=== PATIENT | male | born 1985 | race African-American/Black ===

== ENCOUNTER 2018-06-02 17:49 | Emergency (ER) | payer MEDICAID, OTHER ==
[~2018-06-02] VITALS: Ht 180.3 cm; Wt 86.2 kg
[2018-06-02 18:31] VITALS: BP 126/87
== END 2018-06-02 18:32 | disposition left against medical advice (07) ==
LOC: ER 17:49
DX: R51 Headache (principal); Z53.21 Procedure and treatment not carried out due to patient leaving prior to being seen by health care provider

== ENCOUNTER 2018-06-15 22:52 | Emergency (ER) | payer MEDICAID, OTHER | END 2018-06-15 23:33 | disposition left against medical advice (07) | LOC: ER 23:08 | DX: R07.9 Chest pain, unspecified (principal); Z53.21 Procedure and treatment not carried out due to patient leaving prior to being seen by health care provider | CPT/HCPCS: 93005 ==

== ENCOUNTER 2018-06-19 05:53 | Emergency (ER) | payer MEDICAID ==
[~2018-06-19] VITALS: Ht 180.3 cm; Wt 81.6 kg
[2018-06-19 06:02] VITALS: BP 129/89
== END 2018-06-19 06:46 | disposition left against medical advice (07) ==
LOC: ER 05:54
DX: M79.602 Pain in left arm (principal); M79.601 Pain in right arm; Z53.21 Procedure and treatment not carried out due to patient leaving prior to being seen by health care provider

== ENCOUNTER 2018-06-24 22:49 | Emergency (ER) | payer MEDICAID, OTHER ==
[~2018-06-24] VITALS: Ht 180.3 cm; Wt 86.2 kg
[2018-06-24] MEDS ORDERED: LORazepam 0.5 MG TAB PO ONE (23:30)
[2018-06-24 23:53] LABS: Basophils # (auto) 0.1 uL; Basophils % (auto) 0.9 % (0.0-2.0); Eosinophils # (auto) 0.1 uL; Eosinophils % (auto) 1.1 % (0.0-7.0); Hematocrit 50.6 % (41.0-53.0); Hemoglobin 17.2 g/dL (13.5-17.5); Lymphocytes % (auto) 23.3 % (10.0-50.0); Mean Corpuscular Hemoglobin 30.6 pg (28.0-32.0); Mean Corpuscular Hgb Conc. 33.9 g/dL (32.0-36.0); Mean Corpuscular Volume 90.1 fL (80.0-100.0); Monocytes # (auto) 0.7 uL; Monocytes % (auto) 8.4 % (0.0-12.0); Neutrophils # (auto) 5.8 uL; Neutrophils % (auto) 66.3 % (37.0-80.0); Nucleated Red Blood Cells % 0.2 %; Platelet Count (auto) 147 10^3/uL (140-450); Red Blood Cells 5.62 10^6/uL (4.5-5.90); Red Cell Distribution Width 13.2 % (11.8-14.3); White Blood Cell 8.7 10^3/uL (4.4-10.8)
[2018-06-25 00:10] LABS: Alanine Aminotransferase 23 U/L (16-61); Albumin 4.4 g/dL (3.4-5.0); Anion Gap 6 (5-15); Aspartate Aminotransferase 16 U/L (15-37); BUN/Creatinine Ratio 5.8; Blood Urea Nitrogen 8 mg/dL (7-18); Calcium 8.8 mg/dL (8.5-10.1); Carbon Dioxide 27 mmol/L (21-32); Chloride 103 mmol/L (98-107); GFR African American 75 mL/min; GFR Non-African American 62 mL/min; Glucose 92 mg/dL (74-106); Potassium 3.8 mmol/L (3.5-5.1); Sodium 136 mmol/L (136-145)
[2018-06-25 00:15] LABS: Alkaline Phosphatase 62 U/L (45-117); Bilirubin, Total 0.7 mg/dL (0.2-1.0); Total Protein 8.2 g/dL (6.4-8.2)
[2018-06-25 02:15] VITALS: BP 127/82
== END 2018-06-25 03:01 | disposition home or self-care (01) ==
LOC: ER 22:54
DX: F41.9 Anxiety disorder, unspecified (principal); N18.2 Chronic kidney disease, stage 2 (mild); F17.210 Nicotine dependence, cigarettes, uncomplicated
CPT/HCPCS: 36415; 71045; 80053; 84484; 85025; 93005